=== PATIENT | female | born 1985 | race Caucasian/White ===

== ENCOUNTER 2018-12-23 11:37 | Inpatient (IN) | payer OTHER ==
[~2018-12-23] VITALS: Ht 157.5 cm; Wt 81.9 kg
[~2018-12-23 11:37] MED LIST: PRENATALS
[2018-12-23 11:47] VITALS: Ht 157.5 cm; Wt 81.9 kg
[2018-12-23] MEDS ORDERED: OXYTOCIN 30 UNITS/LR 500 ML IV PRN ×2 (12:00→18:30)
[2018-12-23] MEDS ORDERED: OXYTOCIN 30 UNITS/LR 500 ML IV SCH ×2 (12:00→18:18)
[2018-12-23] MEDS ORDERED: CARBOPROST 250 MCG INJ IM PRN ×2 (12:00→18:30)
[2018-12-23] MEDS ORDERED: CEFAZOLIN 2 GM/50 ML (PMX) 50 ML IVPB SCH (12:00)
[2018-12-23] MEDS ORDERED: METHYLERGONOVINE 0.2 MG INJ IM PRN ×2 (12:00→18:30)
[2018-12-23] MEDS ORDERED: MISOPROSTOL 200 MCG TAB PR PRN ×2 (12:00→18:30)
[2018-12-23] MEDS: LACTATED RINGER'S 1,000 ML IV SCH ×2 (12:44→12:52)
--- NOTE | 2018-12-23 13:18 | HP ---
Date/Time of Note Date/Time of Note DATE: 12/23/18 TIME: 13:16 OB - History Hx of Present Chief Complaint: scheduled Estimated Due Date: Dec 30, 2018 : 4 Para: 2 Spontaneous : 0 Therapeutic : 1 Care: Good Care Ultrasounds: Normal mid trimester US Obstetrical Complications: None Medical Complications: None Past Family/Social History * Past Medical, Surgical, Family and Obstetric Histories reviewed from chart. GBS Status: Negative OB Admission Exam Physical Exam HEENT: WNL Heart: Rhythm Normal Lungs: Clear, Equal Abdomen: WNL Extremities: Normal Reflexes: Normal Heart Rate: 120's Accelerations: Accelerations Present Decelerations: No Decelerations Varibility: Moderate Last 72 hours Lab Results CBC & BMP 12/23/18 12:00 OB Assessment/Plan Reason for admission: section Other Assessment: Voluntary sterilization Plan: Section, Other Other plan: Bilateral tubal ligation CHIKIS LUDWIG MD Dec 23, 2018 13:18
[2018-12-23] MEDS ORDERED: morphine SULFATE/PF (10 MG/10 ML) INJ ONE (13:29)
[2018-12-23] MEDS ORDERED: AZITHROMYCIN 500MG/NS (PMX) 250 ML IVPB ONE (13:30)
--- NOTE | 2018-12-23 13:50 | PAC ---
Date/Time of Note Date/Time of Note DATE: 12/23/18 TIME: 23:30 Post-Anesthesia Notes Post-Anesthesia Note Activity: WNL Respiratory function: WNL Cardiovascular function: WNL Mental status: Baseline Pain reasonably controlled: Yes Hydration appropriate: Yes Nausea/Vomiting absent: Yes PABLO CARDOSO MD Dec 23, 2018 13:50
--- NOTE | 2018-12-23 13:50 | PREAC ---
Date/Time of Note Date/Time of Note DATE: 12/23/18 TIME: 13:46 Anesthesia Eval and Record Evaluation Time Pre-Procedure Interview DATE: 12/23/18 TIME: 12:53 Age 33 Sex female NPO: 8 hrs Preoperative diagnosis iup @ 39 wks., , sterilization request Planned procedure repeat c/s, btl Past Medical History Past Medical History: Includes : : (4), Para: (2), Gestational age: (39 wks.) Surgery & Anesthesia Issues No known issue Meds Anticoagulation: No Beta Miley within 24 hr: No Reason Beta Miley not given: Pt. not on B-Miley Reported Medications [Prenatals] No Conflict Check 10/18/11 Current Medications Lactated Ringer's 1,000 ml @ 125 mls/hr Q8H IV Last administered on 12/23/18at 12:52; Admin Dose 125 MLS/HR; Start 12/23/18 at 11:41 Cefazolin Sodium/ Dextrose 50 ml @ 100 mls/hr ONCE IVPB Last administered on 12/23/18at 13:18; Admin Dose 100 MLS/HR; Start 12/23/18 at 12:00 Oxytocin/Lactated Ringer's 500 ml @ 125 mls/hr POST IV ; Start 12/23/18 at 12:00 Oxytocin/Lactated Ringer's 500 ml @ 0 mls/hr ONCE PRN IV .VAGINAL BLEEDING; Start 12/23/18 at 12:00 Methylergonovine Maleate (Methergine) 0.2 mg ONCE PRN IM .VAGINAL BLEEDING; Start 12/23/18 at 12:00 Carboprost Tromethamine (Hemabate) 250 mcg ONCE PRN IM .VAGINAL BLEEDING; Start 12/23/18 at 12:00 Misoprostol (Cytotec) 1,000 mcg ONCE PRN AL .VAGINAL BLEEDING; Start 12/23/18 at 12:00 Azithromycin 250 ml @ 250 mls/hr ONCE ONCE IVPB ; Start 12/23/18 at 13:30; Stop 12/23/18 at 14:29 Meds reviewed: Yes Allergies Uncoded Allergies: NONE (Allergy, Unknown, 08/16/18) NO KNOWN ALLERGIES Allergies Reviewed: Yes Labs/Studies Labs Reviewed: Reviewed by anesthesiologist Result Diagram: 12/23/18 1200 Laboratory Tests 12/23/18 12:00 Blood Bank Test 12/23/18 12:00 Antibody Screen NEGATIVE Blood Type B NEGATIVE Rh Immune Globulin Candidate test: Positive Studies: ECG (n/a), CXR (n/a) Pre-procedure Exam Airway: Adequate mouth opening, Adequate thyromental dist Mallampati: Mallampati II Teeth: Normal Lung: Normal Heart: Normal ASA Physical Status ASA physical status: 2 Emergency: E Planned Anesthetic General/MAC: TIVA Neuraxial: Spinal Planned Pain Management Sub-arachniod narcotics, Local by surgeon Pre-operative Attestations Prior to commencing anesthesia and surgery, the patient was re-evaluated, there was verification of: *The patient's identity *The results of appropriate recent lab work and preoperative vital signs *The above evaluation not changing prior to induction *Anesthetic plan, risk benefits, alternative and complications discussed with patient/family; questions answered; patient/family understands, accepts and wishes to proceed. Ultrasonic Hand Solderer used PABLO CARDOSO MD Dec 23, 2018 13:50
--- NOTE | 2018-12-23 13:56 | OPPN ---
Date/Time of Note Date/Time of Note DATE: 12/24/18 TIME: 00:30 Anesthesia Follow up Anesthesia Follow up Respiratory function: WNL Cardiovascular function: WNL Comments S: pt. pod #1. min. bt pain. min. n/v. min need for bt pain meds ie. nsaids/opiates. ambulating. O: vss. afeb. A: min. bt pain sec. to it mso4. P: no complications. PABLO CARDOSO MD Dec 23, 2018 13:56
[2018-12-23] MEDS ORDERED: LACTATED RINGER'S 1,000 ML IV ONE (13:58)
[2018-12-23] MEDS ORDERED: OXYTOCIN 10 UNIT INJ ONE ×2 (13:59→14:27)
[2018-12-23] MEDS ORDERED: ONDANSETRON 4 MG INJ ONE (13:59)
[2018-12-23] MEDS ORDERED: ZOLPIDEM 5 MG TAB PO PRN (14:00)
[2018-12-23] MEDS ORDERED: METOCLOPRAMIDE 10 MG INJ ONE (14:00)
[2018-12-23] MEDS ORDERED: ONDANSETRON 4 MG INJ IV PRN (14:00)
[2018-12-23] MEDS ORDERED: MEPERIDINE 25 MG INJ IV PRN (14:00)
[2018-12-23] MEDS ORDERED: DIPHENHYDRAMINE 50 MG INJ IV PRN (14:00)
[2018-12-23] MEDS ORDERED: NALOXONE (0.4 MG/ML) INJ IV PRN (14:00)
[2018-12-23] MEDS ORDERED: MIDAZOLAM 1 MG/ML 2 ML INJ IV PRN (14:00)
[2018-12-23] MEDS ORDERED: HYDROmorphONE 0.5 MG/0.5 ML SYG IV PRN ×2 (14:00)
[2018-12-23] MEDS ORDERED: KETOROLAC 30 MG INJ IV PRN (14:00)
[2018-12-23] MEDS ORDERED: NALBUPHINE HCL (10 MG/1 ML) INJ IV PRN (14:00)
[2018-12-23] MEDS ORDERED: MIDAZOLAM 1 MG/ML 2 ML INJ ONE ×2 (14:05→14:46)
[2018-12-23] MEDS ORDERED: FENTAnyl 50 MCG/ML VIAL ONE (14:47)
[2018-12-23] MEDS ORDERED: DIPHENHYDRAMINE 50 MG INJ ONE (14:48)
[2018-12-23] MEDS ORDERED: KETOROLAC 30 MG INJ ONE (15:05)
--- NOTE | 2018-12-23 15:34 | OPPN ---
Date/Time of Note Date/Time of Note DATE: 12/23/18 TIME: 15:30 Operative Report Planned Procedure Procedure date Dec 23, 2018 Procedure(s) Repeat LTCS, lysis of adhesions, BTL Performed by Chikis Ludwig MD Clinical Trials Systems Administrator: SORAIDA VERA MD 2nd Clinical Trials Systems Administrator none Anesthesiologist: PABLO CARDOSO MD Pre-procedure diagnosis Term , previous c/s, voluntary sterilization [id number] Anesthesia Type: [id number] spinal Post-Procedure Post-procedure diagnosis same, dense pelvic adhesions Findings Live Baby [], Apgars [] and [], weight [], position [], [] presentation []cord. Estimated Blood Loss: other (700 ml) Specimen(s) placenta, Fallopian tubes, pmental adhesions Grafts/Implant(s) none Complication(s) none CHIKIS LUDWIG MD Dec 23, 2018 15:34
[2018-12-23 18:15] VITALS: BP 99/66; PULSE 64; RESP 17
[2018-12-23] MEDS ORDERED: LACTATED RINGER'S 1,000 ML IV SCH (18:18)
[2018-12-23] MEDS ORDERED: OXYCODONE/ACETAMINOPHEN (5/325) TAB PO PRN ×2 (18:30)
[2018-12-23] MEDS ORDERED: LANOLIN HPA 1 PKT TOP PRN (18:30)
[2018-12-23 19:50] VITALS: BP 110/68; PULSE 64; RESP 18
[2018-12-23] MEDS: DIPHENHYDRAMINE 50 MG INJ IV PRN (20:03)
[2018-12-23] MEDS: SENNA/DOCUSATE NA (8.6MG/50MG) TAB PO SCH (22:14)
--- NOTE | 2018-12-23 22:44 | OPR ---
DATE OF OPERATION: 12/23/2018 PREOPERATIVE DIAGNOSES: 1. at 39 weeks with previous section x2. 2. Voluntary sterilization. POSTOPERATIVE DIAGNOSES: 1. at 39 weeks with previous section x2. 2. Voluntary sterilization. 3. Dense pelvic adhesions. OPERATION: Repeat low transverse section, lysis of adhesions and bilateral tubal ligation. SURGEON: Chikis Mann MD [employer] SERVICE SALES REPRESENTATIVE: Carrington Singh MD ANESTHESIA: Spinal. ANESTHESIOLOGIST: Jonathan Desouza MD DESCRIPTION OF PROCEDURE: The patient was taken to operating room and placed on the operating table. After successful spinal anesthesia was given, the patient was placed in supine position. The area was prepared and draped in the usual sterile fashion. Spinal anesthesia was tested and was satisfact ory. Using a scalpel, Pfannenstiel incision was made about 2 fingerbreadths above the symphysis pubi s. The incision was carried down to the fascia. The fascia was incised and extended bilaterally wit h Manzanares scissors. Two Kochers were used to separate the fascia from the muscle. The muscle was disse cted down to peritoneum. The peritoneum was secured with Kellys and incised with Metzenbaum scissors . Upon entering the peritoneal cavity, there were dense pelvic adhesions involving the anterior aspe ct of the uterus. In order to access the lower segment of the uterus, sharp lysis of adhesion was pe rformed and the site of adhesion was ligated with 0 chromic suture. Using a scalpel, a small transve rse incision was made on the lower segment of the uterus. Upon entering the uterine cavity, bandage scissors were inserted to extend the incision bilaterally, curved up. Baby was delivered from cephal ic presentation. After suctioning clear amniotic fluid, the baby was handed off to the team in attendance. Apgars were 8 and 9. The placenta was delivered without difficulty. Uterus was sherrie sed using #1 Monocryl continuous locked. Using 0 chromic and #1 PDS, wcyzcvy-va-lipez were placed on small bleeders. After assuring hemostasis, both ovaries and tubes were inspected and looked normal. The right fallopian tube was grasped with a Lund clamp. Using 0 plain suture ligature, a 5 cm s egment of the right fallopian tube was doubly ligated. Using Metzenbaum scissors, a portion of the r ight fallopian tube over the ligated area was excised and sent to pathology. Same procedure was repe ated on left fallopian tube. After assuring hemostasis, the peritoneal cavity was irrigated with war m saline. Peritoneum was closed with 2-0 Vicryl continuous. The fascia was closed with #1 Vicryl co ntinuous in 2 segments. Subcutaneous tissue was reapproximated with 2-0 plain. Skin was closed with milvia. ESTIMATED BLOOD LOSS: 700 mL. COUNTS: All counts were correct. Dictated By: CHIKIS MANN MD GD/NTS Conf#: [id number] DID#: [id number] CC: JODY THOMAS MD;*EndCC*
[2018-12-24] VITALS: BP 112/66; PULSE 66; RESP 18
[2018-12-24 04:05] VITALS: BP 109/62; PULSE 79; RESP 18
[2018-12-24] MEDS: DIPHENHYDRAMINE 50 MG INJ IV PRN (06:06)
[2018-12-24] MEDS: LACTATED RINGER'S 1,000 ML IV SCH ×3 (06:29→22:30)
[2018-12-24 08:00] VITALS: BP 96/53; PULSE 93; RESP 17
[2018-12-24] MEDS: SENNA/DOCUSATE NA (8.6MG/50MG) TAB PO SCH ×2 (09:07→21:42)
[2018-12-24 12:30] VITALS: BP 108/63; PULSE 89; RESP 17
[2018-12-24 16:00] VITALS: BP 114/64; PULSE 86; RESP 17
[2018-12-24 19:55] VITALS: BP 112/73; PULSE 86; RESP 18
--- NOTE | 2018-12-24 20:06 | QN ---
Documentation Comment No complaint Afebrile VSS Abdomen soft Hgb 8.5 POD #1 Stable Ambulate Advance diet Fe supplement CHIKIS LUDWIG MD Dec 24, 2018 20:06
[2018-12-24] MEDS: IBUPROFEN 800 MG TAB PO SCH (21:42)
[2018-12-24] MEDS: FERROUS SULFATE (EC) 325 MG TAB PO SCH (21:42)
[2018-12-25 04:30] VITALS: BP 117/90; PULSE 88; RESP 18
[2018-12-25] MEDS: IBUPROFEN 800 MG TAB PO SCH ×3 (05:51→23:35)
[2018-12-25] MEDS: LACTATED RINGER'S 1,000 ML IV SCH (07:00)
[2018-12-25 08:00] VITALS: BP 112/58; PULSE 87; RESP 18
[2018-12-25] MEDS: FERROUS SULFATE (EC) 325 MG TAB PO SCH ×3 (09:03→21:12)
[2018-12-25] MEDS: SENNA/DOCUSATE NA (8.6MG/50MG) TAB PO SCH ×2 (09:04→21:00)
[2018-12-25 15:37] VITALS: BP 119/71; PULSE 80; RESP 18
--- NOTE | 2018-12-25 19:09 | QN ---
Documentation Comment No complaint Afebrile VSS Abdomen soft ND Stable Continue present care. CHIKIS LUDWIG MD Dec 25, 2018 19:09
[2018-12-25 19:35] VITALS: BP 111/67; PULSE 83; RESP 18
[2018-12-26 03:57] VITALS: BP 117/67; PULSE 78
[2018-12-26] MEDS: IBUPROFEN 800 MG TAB PO SCH ×2 (05:42→13:23)
[2018-12-26 08:00] VITALS: BP 116/84; PULSE 75; RESP 18
[2018-12-26] MEDS ORDERED: DIPHTH/TET/ACEL PERTUSS (ADULT) 0.5 ML VIAL IM* ONE (09:00)
[2018-12-26] MEDS: SENNA/DOCUSATE NA (8.6MG/50MG) TAB PO SCH (10:08)
[2018-12-26] MEDS: FERROUS SULFATE (EC) 325 MG TAB PO SCH ×2 (10:08→13:23)
--- NOTE | 2018-12-26 13:56 | DS ---
Date/Time of Note Date/Time of Note DATE: 12/26/18 TIME: 13:55 Obstetrical Discharge Record Final Diagnosis Final Diagnosis: Term delivered Vaginal Delivery Obstetrical Delivery: Bilateral Tubal Ligation Section Section: Repeat Condition on Discharge Physical Assessment Voiding: Yes Bowel Movement: Yes Breast: Soft, non-tender, Filling Fundus: Firm Abdomen and Incision: Incision intact Calf Tenderness: No Patient Condition: Stable CHIKIS LUDWIG MD Dec 26, 2018 13:56
--- NOTE | 2019-01-01 11:22 | DELSUM ---
Delivery Summary A-C Datetime Report Generated by CPN: 01/01/2019 11:20 DELIVERY PERSONNEL Newsstand Vendor: Sebunnya, Phoebe MATERNAL INFORMATION Delivery Anesthesia: Spinal Medications in Delivery: see anesthesia record Delivery QBL (ml): 700 Placenta Cultured: No Maternal Complications: None RN Comments: E VELMA RN LABOR SUMMARY EDC: 12/30/2018 00:00 No. Babies in Womb: 1 Attempted: No Labor Anesthesia: None LABOR INFORMATION Reason for Induction: Not Applicable Oxytocin: N/A Group B Beta Strep: Negative Antibiotics # of Doses: 2 Antibiotics Time of Last Dose: 12/23/2018 13:50 Steroids Given: None Reason Steroids Not Administered: Not Applicable MEMBRANES Membranes Rupture Method: Artificial Rupture of Membranes: 12/23/2018 14:04 Length of Rupture (hr): 0.00 Amniotic Fluid Color: Clear Amniotic Fluid Amount: Moderate Amniotic Fluid Odor: Normal STAGES OF LABOR Stage 3 hr: 0 Stage 3 min: 1 CSECTION DELIVERY Primary Indication: Repeat Elective CSection Urgency: Non Elective CSection Incidence: Repeat Labor: No Labor Elective: Nonelective CSection Incision: Lower Uterine Transverse Sterilization Procedure: Alexander BABY A INFORMATION Infant Delivery Date/Time: 12/23/2018 14:04 Method of Delivery: Born in Route : No : N/A Forceps: N/A Vacuum Extraction: N/A Shoulder Dystocia : N/A SHOULDER DYSTOCIA BABY A Infant Delivery Date/Time: 12/23/2018 14:04 PRESENTATION/POSITION BABY A Presentation: Cephalic Cephalic Presentation: Vertex Vertex Position: Left Occipital Anterior Breech Presentation: N/A PLACENTA INFORMATION BABY A Placenta Delivery Time : 12/23/2018 14:05 Placenta Method of Delivery: Manual Removal Placenta Status: Delivered SCORES BABY A Heart Rate 1 min: >100 bpm Resp Effort 1 min: Good Cry Reflex Irritability 1 min: Grimace Muscle Tone 1 min: Active Motion Color 1 min: Body [place], Extremit Blue Resuscitation Effort 1 min: Tactile Stimulation SCORE 1 MIN: 8 Heart Rate 5 min: >100 bpm Resp Effort 5 min: Good Cry Reflex Irritability 5 min: Cough/Sneeze/Pulls Away Muscle Tone 5 min: Active Motion Color 5 min: Body [place], Extremit Blue Resuscitation Effort 5 min: Tactile Stimulation SCORE 5 MIN: 9 INFORMATION BABY A Gestational Age at Delivery: 39.0 Gestational Status: Full Term- 39- 40.6 Weeks Infant Outcome : Liveborn Condition : Stable Infant Sex: Male IDENTIFICATION/MEDS BABY A ID Band Number: [id number] ID Band Location: Right Leg; Left Arm Sensor Applied: Yes Sensor Number: [id number] Sensor Location : Cord Clamp Vitamin K Given : Deferred by Parents Erythromycin Given: Not Given WEIGHT/LENGTH BABY A Infant Birthweight (gm): 3160 Weight (lb): 6 Infant Weight (oz): 15 Length (in): 20.00 Length (cm): 50.80 CORD INFORMATION BABY A No. Cord Vessels: 3 Nuchal Cord : N/A Cord Blood Taken: Yes Infant Suction: Mouth; Nose ASSESSMENT BABY A Infant Complications: None Physical Findings at Delivery: Within Normal Limits Respirations: Appears Normal Java Support Engineer/ALS Called : No Care By: gabi gomez Transferred To: Remains with Mother
== END 2018-12-26 15:25 | disposition home or self-care (01) | DRG 785 ==
LOC: L-D 11:37 → PP1 18:00
PROVIDERS: ADMIT Obstetrics & Gynecology; ATTEND Obstetrics & Gynecology
PROC: 0UL70ZZ Occlusion of Bilateral Fallopian Tubes, Open Approach (ICD-10-PCS; 2018-12-23)
PROC: 3E033VJ Introduction of Other Hormone into Peripheral Vein, Percutaneous Approach (ICD-10-PCS; 2018-12-23)
PROC: 10D00Z1 Extraction of Products of Conception, Low, Open Approach (ICD-10-PCS; principal; 2018-12-23 14:00)
DX: O34.211 Maternal care for low transverse scar from previous cesarean delivery (principal); N85.8 Other specified noninflammatory disorders of uterus; O99.613 Diseases of the digestive system complicating pregnancy, third trimester; K66.0 Peritoneal adhesions (postprocedural) (postinfection); Z3A.39 39 weeks gestation of pregnancy; Z37.0 Single live birth; Z30.2 Encounter for sterilization
CPT/HCPCS: 85025; 85610; 85730; 86592; 86850; 86885; 86900; 86901; 87340; 88302; 88304; 99464; J0456; J0690; J1200; J1885; J2250; J2274; J2405; J2590; J2765; J2790; J3010; J7120